=== PATIENT | male | born 1975 | race Caucasian/White ===

== ENCOUNTER → 2020-04-01 | Outpatient (CLI) | payer BC ==
--- NOTE | 2020-04-02 06:56 | US ---
EXAMINATION TYPE: US scrotum with doppler. Grayscale and color Doppler Duplex imaging performed of t he scrotum. DATE OF EXAM: 04/01/2020 COMPARISON: NONE CLINICAL HISTORY: N50.819 Testicular pain, unspecified. EXAM MEASUREMENTS: TESTICLES: Right Testicle: 4.5 x 2.0 x 3.1 cm Left Testicle: 4.9 x 2.3 x 3.6 cm EPIDIDYMIS HEAD: Right Epididymis: 1.2 cm Left Epididymis: 1.1 cm Doppler performed to assess for testicular vascularity; good bilateral color flow and waveforms are s een. Presence of hydroceles: no Presence of varicoceles: Slight asymmetric prominence of vessels on left No concerning focal intratesticular mass bilaterally. Satisfactory blood flow bilaterally. No concern ing scrotal fluid collection or hydroceles. Dynamic comparison images not performed making evaluation suboptimal. IMPRESSION: Satisfactory blood flow is present bilaterally during real-time scanning.
== END | disposition home or self-care (01) ==
LOC: RADUSWWP 16:31
PROVIDERS: ATTEND Family Medicine
DX: N50.819 Testicular pain, unspecified (principal)
CPT/HCPCS: 76870; 93975